=== PATIENT | male | born 1970 | race Two or more races ===

== ENCOUNTER 2024-07-27 20:30 | Emergency (ER) | payer BC ==
[~2024-07-27] VITALS: Ht 167.6 cm; Wt 80.3 kg
[2024-07-27] MEDS ORDERED: IBUPROFEN 600 MG TABLET ONE (20:53)
[2024-07-27 21:21] VITALS: TEMP 97.8
[2024-07-27] MEDS: IBUPROFEN 600 MG TABLET PO ONE (21:21)
[2024-07-27] MEDS ORDERED: HYDR-4209 PO (21:44)
[2024-07-27] MEDS ORDERED: IBUP-1490 PO (21:44)
[2024-07-27 22:03] VITALS: BP 115/85; O2SAT 97
== END 2024-07-27 22:06 | disposition home or self-care (01) ==
LOC: ER 20:30
DX: M79.632 Pain in left forearm (principal); M79.601 Pain in right arm; R20.2 Paresthesia of skin; M79.645 Pain in left finger(s); M25.531 Pain in right wrist; M25.532 Pain in left wrist; Z87.39 Personal history of other diseases of the musculoskeletal system and connective tissue
CPT/HCPCS: A4606; A4663